=== PATIENT | male | born 1990 | race Caucasian/White ===

== ENCOUNTER 2020-12-14 21:33 | Emergency (ER) | payer SELFPAY ==
[2020-12-14 21:39] VITALS: BP 138/78; PULSE 91; RESP 16; TEMP 36.7; O2SAT 98
--- NOTE | 2020-12-14 21:59 | W.ED.GENAD ---
Discharge Plan Disposition Patient Disposition: HOME Condition: Stable Discharge Details Clinical Impression: Tinea pedis, Onychomycosis Primary Care Provider: None,None ED Provider: Eugene Medeiros Home Meds and New Rx's Prescriptions: New terbinafine HCl 250 mg tablet 250 mg PO DAILY 14 Days Qty: 14 RF: 0 Discharge Instructions Instructions: Skin Yeast Infection (ED) Additional Instructions: We will ask our child care giver team to arrange an outpatient follow-up for you to reestablish local primary care. Take medication as prescribed. Return to develop a fever, spreading rash, or any other acute concerns. Gentle soap and water washing daily and then let air dry. May apply a nonscented skin moisturizer such as Judy once daily. Medical Decision Making 89-year-old male presents with 2 months of itching rash to his feet and some changes to his toenails. It has been refractive to topical treatment such as Lamisil and Tinactin. His exam is most consistent with tinea pedis and I will treat him with 2 weeks of oral terbinafine and arrange for care management to set him up with a primary care physician in this area. We discussed return precautions to the ER prior to discharge. HPI General Mode of arrival: ambulatory. Date/Time Provider Initiated Documentation: 12/14/20 21:34. Limitations to Documentation: no limitations. Information obtained by: patient. History of Present Illness 30 year old M presents to the emergency department with the chief complaint of Itching rash and toenail changes, described as moderate, Quality is described as dull, and is localized to the left, right and lower extremity. Patient reports no radiation. Patient started experiencing this month(s) and it has been intermittent. No relieving factors improve symptom(s), No exacerbating factors reported . Patient did receive the following treatments prior to arrival, none Related Data Home Medications Medication Instructions Recorded Confirmed terbinafine HCl 250 mg PO DAILY 14 Days #14 tab 12/14/20 Previous Rx's Medication Instructions Recorded terbinafine HCl 250 mg PO DAILY 14 Days #14 tab 12/14/20 Allergies Allergy/AdvReac Type Severity Reaction Status Date / Time No Known Allergies Allergy Unverified 12/14/20 21:44 General Stated Complaint: RashLesion TOM: 4 Review of Systems Narrative: 6 systems are reviewed and otherwise negative [facility] Social History Smoking/Tobacco Use Status: Never Smoking risk assessment performed?: Yes Alcohol Intake: current Alcohol Intake frequency: holidays/special occasions only Substance use type: does not use Do you feel safe at home: Yes Exam Narrative Exam Narrative: GEN: awake, alert, oriented 3. Pleasant, well groomed, interactive. HEAD: Normocephalic, atraumatic NECK: Full ROM, no OSIEL, no menigismus CHEST/RESP: Nontender, clear to auscultation bilateral, no wheeze/rhonchi/rales CARDIOVASCULAR: RRR, no murmur, rub maru. 2+ Rad pulse bilateral EXT: Full ROM, no edema, erythematous, raised, excoriated rash present on both feet and left ankle. Not warm to the touch. No induration. Yellowed and thickened toenails. Neuro: Grossly normal neurologic exam, conversant, interactive. Psych: Speech fluent, thoughts congruent, affect normal Course Vital Signs Vital signs: Vital Signs Temperature 36.7 C 12/14/20 21:39 Pulse 91 H 12/14/20 21:39 Respiratory Rate 16 12/14/20 21:39 Blood Pressure 138/78 12/14/20 21:39 Pulse Oximetry 98 12/14/20 21:39 Temperature 36.7 C 12/14/20 21:39 Temperature Source Skin 12/14/20 21:39 Pulse 91 H 12/14/20 21:39 Respiratory Rate 16 12/14/20 21:39 Respiratory Effort Non-Labored 12/14/20 21:43 Blood Pressure 138/78 12/14/20 21:39 Blood Pressure Position Sitting 12/14/20 21:39 Pulse Oximetry 98 12/14/20 21:39 Oxygen Delivery Method Room Air 12/14/20 21:39 Oxygen Flow Rate 0 12/14/20 21:39 Pain Level 0 12/14/20 21:39
[2020-12-14] MEDS: Terbinafine 250 MG TAB PO (22:12)
--- NOTE | 2020-12-15 04:31 | NUR.NOTE ---
Nursing Note: Referral faxed to care management for pcp to be arranged 02/14/2021 libl
== END 2020-12-14 22:21 | disposition home or self-care (01) ==
PROVIDERS: Emergency Provider Emergency Medicine
DX: B35.3 Tinea pedis (principal); B35.1 Tinea unguium
CPT/HCPCS: 99283

== ENCOUNTER 2022-05-28 07:25 | Emergency (ER) | payer OTHER, SELFPAY ==
[2022-05-28 07:29] VITALS: BP 142/70; PULSE 57; RESP 17; TEMP 36.6; O2SAT 98
--- NOTE | 2022-05-28 08:41 | ED.GENADUL_ITS ---
Discharge Plan Disposition Patient Disposition: HOME Condition: Good Discharge Details Clinical Impression: Tinea corporis Primary Care Provider: None,None ED Provider: Kayy Rodriguez Home Meds and New Rx's Prescriptions: New terbinafine HCl 250 mg tablet 250 mg PO DAILY Qty: 14 0RF Discharge Instructions Instructions: Terbinafine (By mouth), Skin Yeast Infection (ED) Additional Instructions: Please return immediately to the emergency department if you develop any new or worsening symptoms, if your condition does not improve as expected, or if you become otherwise concerned. It is extremely important that you call soon as possible to make an appointment to be seen in follow-up for this visit by your primary care doctor and a national van owner operator as we discussed. Medical Decision Making Dell Yang is a 31-year-old man without reported history of medical problems presenting to emergency department with rash. Patient reports that he has had a rash on his right lower leg/ankle since November 2021. Patient reports that rash is very itchy, seems better in the mornings and as the day progresses becomes somewhat painful and more red. Patient reports that rash has not spread in size since onset. Patient reports that he has attempted topical antifungal use with out improvement. Patient reports that he had a similar rash on his left foot/ankle 1 year ago for which he presented to this emergency department and was treated with oral medications. Patient reports that rash on his left lower extremity went away completely with that medication. He denies any other rash, any other pain, fevers, cough, shortness of breath, vomiting, diarrhea, numbness, weakness, swelling. On exam Pt is well and non-toxic appearing. Scattered erythematous excoriated rash with well-demarcated borders on the right ankle/lower leg, no other significant findings on exam. Foot is neurovascularly intact. Concern for tinea corporis. Exam/history at this time is not consistent with cellulitis, DVT, TN, SJS, necrotizing fasciitis, sepsis. Plan for oral terbinafine as was prescribed to him 12/18 with good effect. Patient states that he rarely drinks alcohol and has no history of liver disease. Plan for treatment of fine sure 50 mg p.o. daily x14 days. Patient states that his PCP is currently in [place] but he would like to have a PCP in this area as he lives in [facility]. Pt placed on care management list for establish/follow-up with PCP. Will also need follow-up with dermatology if he has persistent fungal infections in the future which I discussed with him as well. I had a discussion with Patient regarding return to emergency department precautions, home care, and importance of outpatient follow-up. Pt verbalizes understanding of the plan and is amenable. Patient discharged to home with clear plan for outpatient follow-up. All questions were answered. Disposition decision was made weighing the risks and benefits of hospitalization versus outpatient treatment, the risk for further decompensation, and the patient's wishes. Medical Records Medical records reviewed: Yes I reviewed the patient's medical records. HPI General Mode of arrival: ambulatory . Date/Time Provider Initiated Documentation: 05/28/22 08:12 . Limitations to Documentation: no limitations . Information obtained by: patient, RN notes reviewed and old records reviewed . HPI Narrative: Dell Yang is a 31-year-old man without reported history of medical problems presenting to emergency department with rash. Patient reports that he has had a rash on his right lower leg/ankle since November 2021. Patient reports that rash is very itchy, seems better in the mornings and as the day progresses becomes somewhat painful and more red. Patient reports that rash has not spread in size since onset. Patient reports that he has attempted topical antifungal use without improvement. Patient reports that he had a similar rash on his left foot/ankle 1 year ago for which she presented to this emergency department and was treated with oral medications. Patient reports that rash on his left lower extremity went away completely with that medication. He denies any other rash, any other pain, fevers, cough, shortness of breath, vomiting, diarrhea, numbness, weakness, swelling. Related Data Home Medications Medication Instructions Recorded Confirmed terbinafine HCl 250 mg tablet 250 mg PO DAILY #14 tabs 05/28/22 Previous Rx's Medication Instructions Recorded terbinafine HCl 250 mg tablet 250 mg PO DAILY #14 tabs 05/28/22 Allergies Allergy/AdvReac Type Severity Reaction Status Date / Time No Known Allergies Allergy Unverified 05/28/22 07:35 General Stated Complaint: Cellulitis TOM: 4 Review of Systems Narrative: Constitutional: denies fevers Eyes: denies eye pain ENT: denies ear pain, dental pain, sore throat Cardiovascular: denies chest pain, edema Respiratory: denies SOB, cough GI: denies abdominal pain, vomiting, diarrhea : denies flank pain MSK: denies back pain, neck pain, arthralgias, myalgias Skin: reports rash Neuro: denies headaches, numbness, weakness PFSH All Active Problems Tinea pedis (Acute) Onychomycosis (Acute) Tinea corporis (Acute) Social History Smoking/Tobacco Use Status: Current every day Tobacco Type: smokeless tobacco Smoking risk assessment performed?: Yes Alcohol Intake: current Alcohol Intake frequency: holidays/special occasions only Drug use: Never Substance use type: does not use Do you feel safe at home: Yes Do you feel safe in your relationship?: Yes Exam Narrative Exam Narrative: Constitutional: well and [id number], pleasant, conversing normally HENT: head atraumatic/normocephalic/normal inspection, mucous membranes moist Eyes: conjunctiva normal, sclera normal, pupils 3mm b/l Neck: no stridor, normal ROM, trachea midline Resp: normal work of breathing, speaking in full sentences Cardio: normal rate, normal rhythm Skin: warm, dry, normal color Neuro: alert, not altered, grossly non-focal, normal tone Ext: no edema of bilateral lower extremities, right lower leg with scattered erythematous excoriated rash with delineated borders at the ankle and distal lower leg, no tenderness to palpation, no crepitus, no rash to the dorsal or plantar surface of the foot, DP pulse intact, foot is warm and well-perfused, no rash to the left lower extremity Psych: normal mood, normal affect, normal behavior Course Vital Signs Vital signs: Vital Signs Temperature 36.6 C 05/28/22 07:29 Pulse 57 L 05/28/22 07:29 Respiratory Rate 17 05/28/22 07:29 Blood Pressure 142/70 H 05/28/22 07:29 Pulse Oximetry 98 05/28/22 07:29 Temperature 36.6 C 05/28/22 07:29 Temperature Source Tympanic 05/28/22 07:29 Pulse 57 L 05/28/22 07:29 Respiratory Rate 17 05/28/22 07:29 Respiratory Effort Non-Labored 05/28/22 07:33 Blood Pressure 142/70 H 05/28/22 07:29 Blood Pressure Position Sitting 05/28/22 07:29 Pulse Oximetry 98 05/28/22 07:29 Oxygen Delivery Method Room Air 05/28/22 07:29 Oxygen Flow Rate 0 05/28/22 07:29 Pain Level 0 05/28/22 07:29 PAWSS Have you Been Recently Intoxicated or Drunk Within the Last 30 days?: No Have you Ever Experienced Previous Episodes of Alcohol Withdrawal?: No Have you ever Experienced Withdrawal Seizures?: No Have you ever Experienced Delirium Tremens(DT)s?: No Have you ever undergone Alcohol Rehabilitation Treatment (i.e, inpt ot outpatient treatment programs)?: No Have you ever Experienced Blackouts?: No Have you ever Combined Alcohol with other Downers within the last 90 days?: No Have you ever Combined Alcohol with any other Substance of Abuse during the last 90 days?: No Result: 0
--- NOTE | 2022-05-28 09:12 | NUR.NOTE ---
Nursing Note: Referral given to Care Management for needs PCP; establish care; routine follow up.
== END 2022-05-28 08:56 | disposition home or self-care (01) ==
PROVIDERS: Emergency Provider Student in an Organized Health Care Education/Training Program
DX: B35.4 Tinea corporis (principal); F17.290 Nicotine dependence, other tobacco product, uncomplicated
CPT/HCPCS: 99283; 99284

== ENCOUNTER 2025-04-04 18:00 | Emergency (ER) | payer MEDICAID, SELFPAY ==
[2025-04-04 18:04] VITALS: BP 138/89; PULSE 96; RESP 18; O2SAT 98
[2025-04-04] MEDS: Ibuprofen 800 MG TAB PO (18:29)
--- NOTE | 2025-04-04 19:07 | W.ED.GENAD ---
Discharge Plan Disposition Patient Disposition: Home Discharge Details Clinical Impression: Burn of hand Primary Care Provider: None,None ED Provider: Yaritza Goel Home Meds and New Rx's Prescriptions: No Action terbinafine HCl 250 mg tablet 250 mg PO DAILY Qty: 14 0RF Discharge Instructions Instructions: Skin lowry Additional Instructions: Please follow-up with [facility]. A virtual follow-up appointment has been scheduled for Saturday at 3 PM. Call them on Saturday to confirm. Their phone number is [phone] or [phone]. You may continue to use ibuprofen 600 mg every 8 hours and Tylenol 6 and 50 mg every 6 hours. I recommend alternating these for pain control. Wash gently with antibacterial soap and water, cover with a thin layer of antibacterial ointment and cover with petroleum gauze followed by roll gauze. Elevate hand above heart level to help with swelling Your tetanus was updated today A referral has been made to care management for you to establish care with a primary care provider Turn to emergency care if you develop any signs of infection such as fever/chills, increasing swelling/redness down your hand, pus drainage, foul odor, or if you are very worried and need to be rechecked again immediately HPI General Date/Time Provider Initiated Documentation: 04/04/25 18:16. HPI Narrative: Dell is a 34-year-old male who presents to the emergency department today for evaluation of right finger lowry. He sustained the injury to his dominant hand while [place], accidentally grabbing an exhaust pipe. He describes a sizzle followed by burning. Immersing his hand in ice water for 1.5 hours provides some relief, but pain returns after 30-40 seconds out of water. No distal numbness/tingling or other injuries, including to his wrist or elbow. No previous injuries to this hand. He has not sought medical attention or taken any pain relievers. Consumed 5 beers today, says he does not drink alcohol on a regular basis. Denies significant past medical history. Does not currently have a PCP. Not sure of last tetanus Related Data Home Medications ?Medication ?Instructions ?Recorded ?Confirmed terbinafine HCl 250 mg tablet 250 mg PO DAILY #14 tabs 08/29/22 07/06/25 Previous Rx's ?Medication ?Instructions ?Recorded terbinafine HCl 250 mg tablet 250 mg PO DAILY #14 tabs 05/28/22 Allergies Allergy/AdvReac Type Severity Reaction Status Date / Time No Known Allergies Allergy Unverified 04/04/25 18:07 General Stated Complaint: Burn TOM: 3 Exam Narrative Exam Narrative: General Appearance: Normal. Patient is alert and oriented, appears comfortable with hands in cool water Vital signs: Within normal limits. Skin: Blisters present on the plantar aspect of the right fingers down to the MTP joint. No circumferential lowry. Patient able to fully extend fingers, flexion limited due to discomfort, held in position of slight flexion. Musculoskeletal; full painless range of motion of wrist, no obvious deformity Neurological: Sensation grossly intact to finger Psychiatric: Normal. Course Vital Signs Vital signs: Vital Signs Pulse 96 H 04/04/25 18:04 Respiratory Rate 18 04/04/25 18:04 Blood Pressure 138/89 04/04/25 18:04 Pulse Oximetry 98 04/04/25 18:04 Pulse 96 H 04/04/25 18:04 Respiratory Rate 18 04/04/25 18:04 Blood Pressure 138/89 04/04/25 18:04 Pulse Oximetry 98 04/04/25 18:04 Medical Decision Making Initial Assessment: 34-year-old male with right finger lowry from grabbing an exhaust pipe. Blisters present, significant pain worsens when removed from ice water. No numbness or other injuries reported. ED Course: - Ibuprofen administered for pain management. - Numbing gel applied to affected area. - Cool water recommended for relief. - Tetanus booster administered today Final Assessment: Right finger lowry from grabbing an exhaust pipe. Blisters present, significant pain managed with ibuprofen and numbing gel. No numbness or other injuries reported. Clinical Impression: - Right finger lowry Consult with Dr. Sharif, [facility] physician. Recommends antibiotic ointment with occlusive nonadherent dressing and virtual follow-up. Follow-up has been arranged for 3 PM on Saturday. FAITH Thomason applied bacitracin and dressed wound with Vaseline gauze and bulky dressing. Patient reported good pain relief with dressing application. Disposition: - Discharge home. Continue cool compresses and Tylenol/ibuprofen for relief. Return if pain worsens or new symptoms such as signs of infection develop. - Referral to burn clinic for virtual follow-up Patient Education: Numbing gel application. Cool water for relief. Patient consented to the use of MORENA PFSH All Active Problems (Updated 04/04/25 @ 19:35 by Yaritza Whitt) Burn of hand (Acute) Onychomycosis (Acute) Tinea pedis (Acute) Social History Smoking/Tobacco Use Status: Current every day Tobacco Type: smokeless tobacco Smoking risk assessment performed?: Yes Alcohol Intake: current Alcohol Intake frequency: a few times a week Drug use: Never Substance use type: does not use Do you feel safe at home: Yes Do you feel safe in your relationship?: Yes PAWSS Have you Been Recently Intoxicated or Drunk Within the Last 30 days?: No Have you Ever Experienced Previous Episodes of Alcohol Withdrawal?: No Have you ever Experienced Withdrawal Seizures?: No Have you ever Experienced Delirium Tremens(DT)s?: No Have you ever undergone Alcohol Rehabilitation Treatment (i.e, inpt ot outpatient treatment programs)?: No Have you ever Experienced Blackouts?: No Have you ever Combined Alcohol with other Downers within the last 90 days?: No Have you ever Combined Alcohol with any other Substance of Abuse during the last 90 days?: No Positive Blood Alcohol level on Presentation? [PCS.BAL]: No Evidence of Increased Autonomic Activity (i.e. HR>120, tremor, sweating, agitation, nausea)?: No Result: 0
[2025-04-04] MEDS: Lidocaine 2% Jelly 6 ML SYR TP (19:41)
[2025-04-04] MEDS: Diph,Pertuss(Acell),Tet Vac/Pf 0.5 ML SYR IM (19:42)
[2025-04-04 20:28] VITALS: BP 137/62; PULSE 88; RESP 16; O2SAT 98
== END 2025-04-04 20:59 | disposition home or self-care (01) ==
LOC: ER 19:47
PROVIDERS: Emergency Provider Nurse Practitioner Family
DX: T23.031A Burn of unspecified degree of multiple right fingers (nail), not including thumb, initial encounter (principal); T23.051A Burn of unspecified degree of right palm, initial encounter; X19.XXXA Contact with other heat and hot substances, initial encounter; Z23 Encounter for immunization
CPT/HCPCS: 99283; 99284; 90471; 90715